=== PATIENT | female | born 1975 | race Caucasian/White ===

== ENCOUNTER 2018-10-20 15:00 | Emergency (ER) | payer OTHER ==
[~2018-10-20] VITALS: Ht 170.2 cm; Wt 68.0 kg
[2018-10-20] MEDS ORDERED: Bactrim Ds Tab1 EACH PO (17:22)
[2018-10-20] MEDS ORDERED: Mupirocin22 GM TOP (17:22)
== END 2018-10-20 17:58 | disposition home or self-care (01) ==
LOC: ER 15:00
DX: S91.205A Unspecified open wound of left lesser toe(s) with damage to nail, initial encounter (principal); Z88.5 Allergy status to narcotic agent; Z87.891 Personal history of nicotine dependence; X58.XXXA Exposure to other specified factors, initial encounter
CPT/HCPCS: 11730; 73660; 90471; 90714; 99283-25